=== PATIENT | male | born 1950 | race African-American/Black ===

== ENCOUNTER 2016-09-11 21:33 | Inpatient (IN) | payer OTHER ==
[~2016-09-11] VITALS: Ht 170.2 cm; Wt 72.3 kg
[~2016-09-11 21:33] MED LIST: BENADRYL25 MG PO; COZAAR100 MG PO; CYCLOBENZAPRINE10 MG PO; DESYREL100 MG PO; DILAUDID2 MG PO; FERGON324 MG PO; FERROUS GLUCON324 MG PO; FLEXERIL10 MG PO; FLOMAX0.4 MG PO; GABAPENTIN300 MG PO; HABITROL,NICODE21 MG TD; HYDROCHLOROTHIA25 MG PO; HYDROCODON-ACE1 EAC7 PO; HYTRIN1 MG PO; KADIAN30 MG PO; LASIX40 MG PO; LIDOCAINE700 MG TD; LIDODERM 5% P1 PATCH TD; LISINOPRIL5 MG PO; LOMOTIL TABLET1 EACH PO; MEDROL DOSEPAK4 MG PO; METOLAZONE2.5 MG PO; MORPHINE SULFAT30 M1 PO; NEXAVAR200 MG PO; OMEPRAZOLE20 MG PO; OXYCODONE HCL10 MG PO; OXYCODONE HCL15 MG PO; OXYCONTIN15 MG PO; PERCOCET 5/31 TABLET PO; PRILOSEC20 MG PO; PRINIVIL40 MG PO; PROMETHAZINE HC25 M1 PO; ROXICODONE15 MG PO; TAMSULOSIN HCL0.4 MG PO; VISTARIL25 MG PO; VISTARIL50 MG PO; ZANTAC150 M1 PO; ZOFRAN ODT8 MG PO; ZOFRAN4 MG PO; ZOFRAN8 MG PO; ZOLOFT100 MG PO
[2016-09-11 23:59] LABS: CHLORIDE 111 mEq/L (99-109); POTASSIUM 4.3 mEq/L (3.7-5.4); SODIUM 143 mEq/L (136-147)
[2016-09-12] LABS: GLUCOSE 105 mg/dL (70-99)
[2016-09-12 00:02] LABS: ANION GAP 8 MEQ/L (2-14)
[2016-09-12 00:04] LABS: GFR ESTIMATE (CALCULATED) 32 mL/min/
[2016-09-12 00:05] LABS: UREA NITROGEN (BUN) 41 mg/dL (9-23)
[2016-09-12] MEDS ORDERED: IRON325 M1 PO (01:18)
[2016-09-12 02:48] LABS: HEMATOCRIT 28.2 % (38.0-50.0); MCH 17.8 PG (29.0-34.0); MCHC 29.8 G/DL (30.0-36.0); MCV 59.9 FL (86-99); MEAN PLAT.VOLUME 10.6 uM^3 (9.0-12.4); NRBC (%) 0.3 /100 WBC (0-0); PLATELET COUNT 172 K/uL (156-360); RBC DIS.WIDTH-CV 16.4 % (11.8-14.6); RBC DIS.WIDTH-SD 34.3 % (39-53); RED BLOOD COUNT 4.71 M/uL (4.00-5.50); WHITE BLOOD COUNT 6.7 K/uL (4.1-10.2)
[2016-09-12 05:10] VITALS: BP 138/86
[2016-09-12 06:56] LABS: INTER. NORMALIZED RATIO 1.1; PROTHROMBIN TIME 11.2 (9.2-11.2); PTT 24.5 (25-32)
[2016-09-12 07:14] LABS: HEMATOCRIT 27.9 % (38.0-50.0); MCH 17.7 PG (29.0-34.0); MCHC 29.4 G/DL (30.0-36.0); MCV 60.4 FL (86-99); MEAN PLAT.VOLUME 10.7 uM^3 (9.0-12.4); PLATELET COUNT 163 K/uL (156-360); RBC DIS.WIDTH-CV 16.5 % (11.8-14.6); RED BLOOD COUNT 4.62 M/uL (4.00-5.50); WHITE BLOOD COUNT 5.2 K/uL (4.1-10.2)
[2016-09-12 07:15] LABS: ALKALINE PHOSPHATASE 86 IU/L (3-129); DIRECT BILIRUBIN 0.1 mg/dL (0.0-0.3); LIPASE 51 U/L (1.0-51.0); TOTAL BILIRUBIN 0.3 MG/DL (0.0-1.0)
[2016-09-12 07:17] LABS: ANION GAP 5 MEQ/L (2-14); CHLORIDE 112 MEQ/L (99-109); GFR ESTIMATE (CALCULATED) 41 mL/min/; GLUCOSE 87 mg/dL (70-99); POTASSIUM 3.8 MEQ/L (3.7-5.4); SAMPLE HEMOLYSIS CHECK 0; SAMPLE ICTERIC CHECK 0; SAMPLE LIPEMIA CHECK 0; SODIUM 142 MEQ/L (136-147); UREA NITROGEN (BUN) 37 mg/dL (9-23)
[2016-09-12 08:34] LABS: IRON 69 MCG/DL (35-150)
[2016-09-12 09:10] LABS: FERRITIN 456 NG/ML (22-322)
[2016-09-12 10:24] LABS: ADD MIUA? YES; BILIRUBIN NEGATIVE; BLOOD MODERATE; COLOR YELLOW ((YELLOW)); GLUCOSE (STRIP) NEGATIVE; KETONES NEGATIVE; LEUKOCYTES NEGATIVE; NITRITE NEGATIVE; PROTEIN (STRIP) 100; SPECIFIC GRAVITY 1.012 (1.000-1.030); UROBILINOGEN 0.2 MG/DL (0.2-1.0)
[2016-09-12 10:42] LABS: MAGNESIUM 2.1 mg/dl (1.3-2.7)
[2016-09-12 11:00] LABS: BACTERIA NONE SEEN /HPF; EPITHELIAL CELLS NONE SEEN /HPF; HYALINE CASTS 0-5 /LPF; MUCUS NONE SEEN /LPF; UCUL ADDED? NO; WHITE BLOOD CELLS 0-5 /HPF (0-5)
[2016-09-12 11:28] LABS: HIV INDEX 0.15; HIV-1/2 AB/AG COMBO Nonreactive
[2016-09-12 11:36] LABS: HBSG INDEX 0.27
[2016-09-12 11:37] LABS: ANTI-HEPATITIS A VIRUS (IGM) Nonreactive; HAV INDEX 0.19
[2016-09-12 11:38] LABS: ANTI-HEPATITIS B CORE (IGM) Nonreactive; HBC IgM INDEX 0.34
[2016-09-12 11:59] LABS: HPCA INDEX 13.68
[2016-09-12 14:57] VITALS: BP 119/74
[2016-09-12 23:00] VITALS: BP 106/76
[2016-09-13 07:00] VITALS: BP 121/60
[2016-09-13 07:38] LABS: ANION GAP 4 MEQ/L (2-14); CHLORIDE 115 MEQ/L (99-109); GFR ESTIMATE (CALCULATED) > 59 mL/min/; GLUCOSE 83 mg/dL (70-99); POTASSIUM 4.1 MEQ/L (3.7-5.4); SAMPLE HEMOLYSIS CHECK 0; SAMPLE ICTERIC CHECK 0; SAMPLE LIPEMIA CHECK 0; SODIUM 143 MEQ/L (136-147); UREA NITROGEN (BUN) 27 mg/dL (9-23)
[2016-09-13 07:48] LABS: EOSINOPHIL (%) 7.5 % (0-5); EOSINOPHIL COUNT 0.3 K/uL (0-0.3); HEMATOCRIT 26.3 % (38.0-50.0); INSTRUMENT ABS NEUTROPHIL CT 1.3 K/uL; LYMPHOCYTE COUNT 1.5 K/uL (1.0-2.8); MCH 18.1 PG (29.0-34.0); MCV 60.3 FL (86-99); MONOCYTE (%) 11.9 % (3-12); MONOCYTE COUNT 0.4 K/uL (0-0.8); NEUTROPHIL (%) 38.3 % (45-76); NEUTROPHIL COUNT 1.3 K/uL (1.8-6.4); RBC DIS.WIDTH-CV 16.5 % (11.8-14.6); RBC DIS.WIDTH-SD 35.2 % (39-53); RED BLOOD COUNT 4.36 M/uL (4.00-5.50)
[2016-09-13 07:51] LABS: WHITE BLOOD COUNT 3.5 K/uL (4.1-10.2)
[2016-09-13 11:28] LABS: MEAN PLAT.VOLUME 10.5 uM^3 (9.0-12.4); PLAT.SUFFICIENCY ADEQUATE; PLATELET COUNT 155 K/uL (156-360)
[2016-09-13 15:00] VITALS: BP 123/62
[2016-09-13 23:34] VITALS: BP 119/58
[2016-09-14 07:17] VITALS: BP 147/84
[2016-09-14 07:17] LABS: EOSINOPHIL (%) 6.8 % (0-5); EOSINOPHIL COUNT 0.3 K/uL (0-0.3); HEMATOCRIT 28.2 % (38.0-50.0); IMMATURE GRANULOCYTE (%) 0.3 % (0.0-0.7); INSTRUMENT ABS NEUTROPHIL CT 1.4 K/uL; LYMPHOCYTE COUNT 1.6 K/uL (1.0-2.8); MCH 18.1 PG (29.0-34.0); MCHC 29.8 G/DL (30.0-36.0); MCV 60.6 FL (86-99); MEAN PLAT.VOLUME 10.8 uM^3 (9.0-12.4); MONOCYTE (%) 10.1 % (3-12); MONOCYTE COUNT 0.4 K/uL (0-0.8); NEUTROPHIL (%) 38.5 % (45-76); NEUTROPHIL COUNT 1.4 K/uL (1.8-6.4); PLATELET COUNT 158 K/uL (156-360); RBC DIS.WIDTH-CV 16.9 % (11.8-14.6); RBC DIS.WIDTH-SD 35.3 % (39-53); RED BLOOD COUNT 4.65 M/uL (4.00-5.50); WHITE BLOOD COUNT 3.7 K/uL (4.1-10.2)
[2016-09-14 07:30] LABS: ANION GAP 3 MEQ/L (2-14); CHLORIDE 113 MEQ/L (99-109); GFR ESTIMATE (CALCULATED) > 59 mL/min/; GLUCOSE 91 mg/dL (70-99); POTASSIUM 4.5 MEQ/L (3.7-5.4); SAMPLE HEMOLYSIS CHECK 0; SAMPLE ICTERIC CHECK 0; SAMPLE LIPEMIA CHECK 0; SODIUM 141 MEQ/L (136-147); UREA NITROGEN (BUN) 17 mg/dL (9-23)
[2016-09-14 14:45] LABS: POC NON-PRINT COM 1 ND
[2016-09-14 15:56] VITALS: BP 148/76
[2016-09-14 23:14] VITALS: BP 122/58
[2016-09-15 07:49] LABS: EOSINOPHIL (%) 8.3 % (0-5); EOSINOPHIL COUNT 0.4 K/uL (0-0.3); HEMATOCRIT 31.8 % (38.0-50.0); IMMATURE GRANULOCYTE (%) 0.2 % (0.0-0.7); INSTRUMENT ABS NEUTROPHIL CT 1.7 K/uL; LYMPHOCYTE COUNT 1.6 K/uL (1.0-2.8); MCH 17.9 PG (29.0-34.0); MCHC 29.2 G/DL (30.0-36.0); MEAN PLAT.VOLUME 10.3 uM^3 (9.0-12.4); MONOCYTE (%) 12.5 % (3-12); MONOCYTE COUNT 0.5 K/uL (0-0.8); NEUTROPHIL (%) 40.1 % (45-76); NEUTROPHIL COUNT 1.7 K/uL (1.8-6.4); PLATELET COUNT 179 K/uL (156-360); RBC DIS.WIDTH-CV 16.8 % (11.8-14.6); RBC DIS.WIDTH-SD 35.4 % (39-53); RED BLOOD COUNT 5.21 M/uL (4.00-5.50); WHITE BLOOD COUNT 4.2 K/uL (4.1-10.2)
[2016-09-15 07:53] VITALS: BP 144/77
[2016-09-15 08:13] LABS: ANION GAP 4 MEQ/L (2-14); CHLORIDE 109 MEQ/L (99-109); GFR ESTIMATE (CALCULATED) > 59 mL/min/; GLUCOSE 102 mg/dL (70-99); POTASSIUM 5.2 MEQ/L (3.7-5.4); SAMPLE HEMOLYSIS CHECK 0; SAMPLE ICTERIC CHECK 0; SAMPLE LIPEMIA CHECK 0; SODIUM 139 MEQ/L (136-147); UREA NITROGEN (BUN) 16 mg/dL (9-23)
[2016-09-15 08:14] LABS: ALKALINE PHOSPHATASE 71 IU/L (3-129)
[2016-09-15 08:15] LABS: TOTAL BILIRUBIN 0.4 MG/DL (0.0-1.0)
[2016-09-15] MEDS ORDERED: OXAYDO5 MG PO (13:52)
[2016-09-15 17:15] VITALS: BP 152/86
== END 2016-09-15 18:19 | disposition home or self-care (01) | DRG 682 ==
LOC: EME 21:33 → EDOF 09-12 03:47 → 5EAST 09-12 03:47
PROVIDERS: Emergency Medicine; Hospitalist; Internal Medicine
DX: N17.9 Acute kidney failure, unspecified (principal); E83.51 Hypocalcemia; E87.6 Hypokalemia; N40.0 Benign prostatic hyperplasia without lower urinary tract symptoms; I10 Essential (primary) hypertension; C22.0 Liver cell carcinoma; Z59.0 Homelessness; D50.9 Iron deficiency anemia, unspecified; K85.90 Acute pancreatitis without necrosis or infection, unspecified; F43.20 Adjustment disorder, unspecified
CPT/HCPCS: 74176; 80048; 80069; 80074; 80076; 81003; 82272; 82330; 82728; 83540; 83690; 83735; 84466; 85025; 85027; 85610; 85730; 86703; 86803; 93005; 93971; 99281; 99285; J0610; J1644; J7030; J7050

== ENCOUNTER 2017-02-05 07:59 | Emergency (ER) | payer OTHER ==
[~2017-02-05] VITALS: Ht 170.2 cm; Wt 68.3 kg
[~2017-02-05 07:59] MED LIST changes: +IRON325 M1 PO; +OXAYDO5 MG PO
[2017-02-05 08:51] LABS: EOSINOPHIL (%) 8.5 % (0-5); EOSINOPHIL COUNT 0.7 K/uL (0-0.3); HEMATOCRIT 33.3 % (38.0-50.0); IMMATURE GRANULOCYTE (%) 0.3 % (0.0-0.7); INSTRUMENT ABS NEUTROPHIL CT 4.4 K/uL; LYMPHOCYTE COUNT 1.6 K/uL (1.0-2.8); MCH 18.1 PG (29.0-34.0); MCHC 30.6 G/DL (30.0-36.0); MCV 59.1 FL (86-99); MEAN PLAT.VOLUME 10.1 uM^3 (9.0-12.4); MONOCYTE (%) 12.2 % (3-12); MONOCYTE COUNT 0.9 K/uL (0-0.8); NEUTROPHIL (%) 57.7 % (45-76); NEUTROPHIL COUNT 4.4 K/uL (1.8-6.4); PLATELET COUNT 209 K/uL (156-360); RBC DIS.WIDTH-CV 16.4 % (11.8-14.6); RBC DIS.WIDTH-SD 32.4 % (39-53); RED BLOOD COUNT 5.63 M/uL (4.00-5.50); WHITE BLOOD COUNT 7.6 K/uL (4.1-10.2)
[2017-02-05 08:54] LABS: INTER. NORMALIZED RATIO 1.1; PROTHROMBIN TIME 12.6 SEC (10.2-12.9)
[2017-02-05 08:57] LABS: CHLORIDE 110 mEq/L (99-109); POTASSIUM 3.3 mEq/L (3.7-5.4); SODIUM 138 mEq/L (136-147)
[2017-02-05 08:59] LABS: GLUCOSE 106 mg/dL (70-99)
[2017-02-05 09:00] LABS: ANION GAP 5 MEQ/L (2-14)
[2017-02-05 09:01] LABS: TOTAL BILIRUBIN 0.4 mg/dL (0.0-1.0)
[2017-02-05 09:03] LABS: ALKALINE PHOSPHATASE 74 IU/L (3-129); GFR ESTIMATE (CALCULATED) > 59 mL/min/
[2017-02-05 09:04] LABS: UREA NITROGEN (BUN) 16 mg/dL (9-23)
[2017-02-05] MEDS ORDERED: NAPROXEN500 MG PO (10:30)
[2017-02-05] MEDS ORDERED: KEFLEX500 MG PO (10:34)
[2017-02-05 10:48] VITALS: BP 141/85
== END 2017-02-05 10:52 | disposition home or self-care (01) ==
LOC: EME 07:59
PROVIDERS: Physician Assistant
DX: N99.841 Postprocedural hematoma of a genitourinary system organ or structure following other procedure (principal); Y83.8 Other surgical procedures as the cause of abnormal reaction of the patient, or of later complication, without mention of misadventure at the time of the procedure; E87.6 Hypokalemia; C22.9 Malignant neoplasm of liver, not specified as primary or secondary; I12.9 Hypertensive chronic kidney disease with stage 1 through stage 4 chronic kidney disease, or unspecified chronic kidney disease; N18.9 Chronic kidney disease, unspecified; E11.22 Type 2 diabetes mellitus with diabetic chronic kidney disease; E78.5 Hyperlipidemia, unspecified; K21.9 Gastro-esophageal reflux disease without esophagitis; K74.60 Unspecified cirrhosis of liver; Z86.73 Personal history of transient ischemic attack (TIA), and cerebral infarction without residual deficits; F32.9 Major depressive disorder, single episode, unspecified; F17.200 Nicotine dependence, unspecified, uncomplicated; Z88.0 Allergy status to penicillin
CPT/HCPCS: 76881; 80053; 85025; 85610; 99281; 99285